=== PATIENT | male | born 1945 | race Asian ===

== ENCOUNTER → 2020-07-24 08:17 | Outpatient (BNVA) | payer MEDICARE, SELFPAY | PROVIDERS: PCP Internal Medicine; Visit Provider Urology | DX: R35.1 Nocturia (principal); N40.1 Benign prostatic hyperplasia with lower urinary tract symptoms; N13.8 Other obstructive and reflux uropathy; Z12.5 Encounter for screening for malignant neoplasm of prostate | CPT/HCPCS: 51798; 81002; 99212 ==

== ENCOUNTER → 2021-07-29 08:25 | Outpatient (BNVA) | payer MEDICARE, SELFPAY | PROVIDERS: PCP Internal Medicine; Visit Provider Urology | DX: N40.1 Benign prostatic hyperplasia with lower urinary tract symptoms (principal); N13.8 Other obstructive and reflux uropathy; R35.1 Nocturia | CPT/HCPCS: 51798; 99212 ==

== ENCOUNTER 2022-07-28 08:24 | Outpatient (REF) | payer MEDICARE, MEDICAID, SELFPAY ==
[2022-07-28 17:09] LABS: Urine Cytology See Pathology rpt
== END 2022-07-28 08:25 | disposition home or self-care (01) ==
LOC: HO.LAB 08:24
PROVIDERS: PCP Internal Medicine; Visit Provider Urology
DX: N40.1 Benign prostatic hyperplasia with lower urinary tract symptoms (principal); N13.8 Other obstructive and reflux uropathy; R31.29 Other microscopic hematuria; R35.1 Nocturia
CPT/HCPCS: 51798; 88112; 99212

== ENCOUNTER 2023-11-18 10:06 | Outpatient (AMB) | payer MEDICARE, MEDICAID, SELFPAY ==
--- NOTE | 2023-11-18 10:19 | A.OFFVIS_ITS ---
Intake Intake Visit Reasons: 1Y PVR/PSA(set) Intake Note: Patient presents today for a follow-up on PVR/PSA Meds- Terazosin Allergies to Antibiotic- No Known Allergies Blood Thinner- None Post Void Residual: 0ml Cat And Dog Bather Required: No Accompanied by: Self / Same As Patient Allergies No Known Allergies Allergy (Verified 11/18/23 10:29) HPI HPI Comments History of Present Illness Details Kan is a very pleasant [place] male. He is a patient of Dr Mcgill. He is seen for the following urologic conditions - lower urinary tract symptoms - nocturia Yearly visit Stable with 2 mg terazosin Nocturia 1-2 times per night Good stream PVR 0 Examination of prostate with small nodule left base PSA stable Lower Urinary Tract Symptoms: Good response to low-dose terazosin Current visit is for further evaluation of, lower urinary tract symptoms, predominate obstructive symptoms - stable with 2mg. Current treatment includes alpha rosalba, terazosin 2mg. Prior treatments include medication. Prostate Symptom Score Mild (0-8), Bother 2 06/16 , Mild (0-8), Bother 2. Symptoms include 06/16 , incomplete emptying, weak stream, nocturia (>2), and are stable. Results from testing include uroflow was performed Yes with a voided volume of 309 with a maximum flow rate (Q max) 32 based on the [place] nomagram this represents the following percentile 95 the following patterns were seen sawtooth PSA 11/2012 = 0.6 10/17 - 0.5, 05/18 - 0.6. Prostate volume < 30 gm. Testing at next visit will include Prostate Symptom Score, uroflow, bladder scan. Treatment plan continue with current medications [facility] Medical History Enlarged prostate Hemorrhoids Hyperlipidemia Diverticulosis Weak urinary stream Feeling of incomplete bladder emptying Benign prostatic hyperplasia with lower urinary tract symptoms Review of Systems Const Denies chills and Denies fever(s) Card Reports no additional complaints and Denies syncope Resp Denies cough GI Denies abdominal pain and Denies heartburn Reports as per HPI and Denies change in libido Neuro Denies syncope Psych Denies change in libido Endo Denies change in libido Physical Exam Const General: cooperative, healthy appearing, comfortable and no acute distress Orientation/consciousness: patient oriented x3 HEENT Face and sinus: Yes normal facial exam Mouth: moist mucous membranes Neck Neck: Yes normal visual inspection, Yes full ROM and Yes trachea midline Chest Chest palpation & inspection: normal inspection of the chest Resp Effort & Inspection: normal respiratory effort, able to speak in complete sentences and no respiratory distress GI Inspection: Yes normal to inspection Back/Spine/Pelvis Cervical Spine: normal cervical lordosis Thoracic/Lumbar Spine: thoracic and lumbar spine normal to inspection Skin General skin exam: no rashes or lesions noted Neuro General: patient oriented x3, gait normal, tone normal and moves all extremities Extrem General: Yes normal to inspection and Yes capillary refill normal Office Procedures Post Void Residual Post Residual Void Post Void Residual (PVR): 0 [id number] Void Residual by ultrasound Assessment & Plan Assessment & Plan (1) Nocturia: Code(s): R35.1 - Nocturia (2) BPH w urinary obs/LUTS: Code(s): N40.1 - Benign prostatic hyperplasia with lower urinary tract symptoms; N13.8 - Other obstructive and reflux uropathy Plan Twelve month follow-up Orders: Orders AMB Post Void Residual by ultrasound Today R33.9 - Retention of urine, unspecified Medications: Refilled terazosin 2 mg PO DAILY 90 caps 3RF 90 days N13.8 - Other obstructive and reflux uropathy, N40.1 - Benign prostatic hyperplasia with lower urinary tract symptoms Patient Instructions: Imaging studies, laboratory and physical exam results were discussed and reviewed in detail. No major barriers to patient understanding were identified. An opportunity to ask questions regarding the treatment plan was provided. All questions were answered. The patient expressed understanding and agreement with the above treatment plan. The patient is aware they should contact our office by phone for worsening of their current condition or the appearance of new urologic symptoms. Compliance is encouraged with any medications and followup testing that is ordered. It is a privilege to participate in the urologic care of your patient. If you have any questions or concerns regarding treatment for the above conditions, or other urologic issues, please do not hesitate to contact me. The office telephone contact is [phone]. This note is constructed using voice recognition software. While every effort h as been made to ensure accuracy electronic funds transfer coordinator errors may have been included. Yours sincerely, Dr Gino Reardon MD, [facility] - Urology Providers of Expert, Compassionate Care for the Genitourinary System Coding Level of Care Code Est Pt Level 3 (58787) Diagnoses Nocturia R35.1 BPH w urinary obs/LUTS N40.1; N13.8 CPT Codes Post Residual Void - PVR CPT Code: 97333-Rkvd Void Residual by ultrasound ([id number])
== END 2023-11-18 10:56 | disposition home or self-care (01) ==
PROVIDERS: PCP Internal Medicine; Visit Provider Urology
DX: N40.1 Benign prostatic hyperplasia with lower urinary tract symptoms (principal); R35.1 Nocturia; N13.8 Other obstructive and reflux uropathy
CPT/HCPCS: 99213

== ENCOUNTER → 2023-11-18 10:06 | Outpatient (BNVA) | payer MEDICARE, MEDICAID, SELFPAY | PROVIDERS: PCP Internal Medicine; Visit Provider Urology | DX: N40.1 Benign prostatic hyperplasia with lower urinary tract symptoms (principal); R35.1 Nocturia; N13.8 Other obstructive and reflux uropathy; R33.8 Other retention of urine | CPT/HCPCS: 51798; 99212 ==

== ENCOUNTER 2024-11-16 10:11 | Outpatient (AMB) | payer MEDICARE, MEDICAID, SELFPAY ==
--- NOTE | 2024-11-16 10:24 | A.OFFVIS_ITS ---
Intake Visit Reasons: 1y/PVR(SET) Intake Note: Pt presents to the office today for a 1 year/PVR PVR:37mL Allergies No Known Allergies Allergy (Verified 11/16/24 10:24) HPI Comments Details: Kan is a very pleasant [place] male. He is a patient of Dr Mcgill. He is seen for the following urologic conditions - lower urinary tract symptoms - nocturia Yearly visit Stable with 2 mg terazosin Nocturia 1-2 times per night Good stream PVR 0 Examination of prostate with small nodule left base PSA stable Lower Urinary Tract Symptoms: Good response to low-dose terazosin Current visit is for further evaluation of, lower urinary tract symptoms, predominate obstructive symptoms - stable with 2mg. Current treatment includes alpha rosalba, terazosin 2mg. Prior treatments include medication. Prostate Symptom Score Mild (0-8), Bother 2 06/16 , Mild (0-8), Bother 2. Symptoms include 06/16 , incomplete emptying, weak stream, nocturia (>2), and are stable. Results from testing include uroflow was performed Yes with a voided volume of 309 with a maximum flow rate (Q max) 32 based on the [place] nomagram this represents the following percentile 95 the following patterns were seen sawtooth PSA 11/2012 = 0.6, 10/17 - 0.5, 05/18 - 0.6, 11/20 0.6 Prostate volume < 30 gm. Testing at next visit will include Prostate Symptom Score, uroflow, bladder scan. Treatment plan continue with current medications [facility] Medical History Enlarged prostate Hemorrhoids Hyperlipidemia Diverticulosis Weak urinary stream Feeling of incomplete bladder emptying Benign prostatic hyperplasia with lower urinary tract symptoms Review of Systems Const Denies chills and Denies fever(s) Card Reports no additional complaints and Denies syncope Resp Denies cough GI Denies abdominal pain and Denies heartburn Reports as per HPI and Denies change in libido Neuro Denies syncope Psych Denies change in libido Endo Denies change in libido Physical Exam Const General: cooperative, healthy appearing, comfortable and no acute distress Orientation/consciousness: patient oriented x3 HEENT Face and sinus: Yes normal facial exam Mouth: moist mucous membranes Neck Neck: Yes normal visual inspection, Yes full ROM and Yes trachea midline Chest Chest palpation & inspection: normal inspection of the chest Resp Effort & Inspection: normal respiratory effort, able to speak in complete s entences and no respiratory distress GI Inspection: Yes normal to inspection Back/Spine/Pelvis Cervical Spine: normal cervical lordosis Thoracic/Lumbar Spine: thoracic and lumbar spine normal to inspection Skin General skin exam: no rashes or lesions noted Neuro General: patient oriented x3, gait normal, tone normal and moves all extremities Extrem General: Yes normal to inspection and Yes capillary refill normal Office Procedures Post Void Residual Post Residual Void Post Void Residual (PVR): 37 [id number] Void Residual by ultrasound Assessment & Plan Assessment & Plan (1) Nocturia: Code(s): R35.1 - Nocturia Category: Medical (2) BPH w urinary obs/LUTS: Code(s): N40.1 - Benign prostatic hyperplasia with lower urinary tract symptoms; N13.8 - Other obstructive and reflux uropathy Category: Medical Plan 12 month follow-up Orders: Orders AMB Post Void Residual by ultrasound 11/16/24 N40.1 - Benign prostatic hyperplasia with lower urinary tract symptoms, N13.8 - Other obstructive and reflux uropathy Patient Instructions: This note is constructed using voice recognition software. While every effort has been made to ensure accuracy mechanical applications engineer errors may have been included. Imaging studies, laboratory and physical exam results were discussed and reviewed in detail. No major barriers to patient understanding were identified. An opportunity to ask questions regarding the treatment plan was provided. All questions were answered. The patient expressed understanding and agreement with the above treatment plan. The patient is aware they should contact our office by phone for worsening of their current condition or the appearance of new urologic symptoms. Compliance is encouraged with any medications and followup testing that is ordered. It is a privilege to participate in the urologic care of your patient. If you have any questions or concerns regarding treatment for the above conditions, or other urologic issues, please do not hesitate to contact me. The office telephone contact is [phone]. Sincerely, Dr Gino Reardon MD, [facility] - Urology Compassionate Specialist Care for the Genitourinary System Coding Level of Care Code Est Pt Level 4 (59821) Complex EM visit Add On G2211 Diagnoses Nocturia R35.1 BPH w urinary obs/LUTS N40.1; N13.8 CPT Codes Post Residual Void - PVR CPT Code: 12036-Wsrl Void Residual by ultrasound ([id number])
== END 2024-11-16 11:04 | disposition home or self-care (01) ==
LOC: HO.HUSH 10:12
PROVIDERS: PCP Internal Medicine; Visit Provider Urology
DX: N40.1 Benign prostatic hyperplasia with lower urinary tract symptoms (principal); R35.1 Nocturia; N13.8 Other obstructive and reflux uropathy
CPT/HCPCS: 99214; G2211

== ENCOUNTER → 2024-11-16 10:11 | Outpatient (BNVA) | payer MEDICARE, MEDICAID, SELFPAY | PROVIDERS: PCP Internal Medicine; Visit Provider Urology | DX: N40.1 Benign prostatic hyperplasia with lower urinary tract symptoms (principal); N13.8 Other obstructive and reflux uropathy; R35.1 Nocturia | CPT/HCPCS: 51798; 99212 ==